=== PATIENT | female | born 1965 | race Two or more races ===

== ENCOUNTER → 2017-04-16 | Day surgery (SDC) | payer MEDICARE, OTHER ==
[~2017-04-16] MED LIST: ATROPINE SULFATE 1% OPHT SOLN 5 ML BTL ONE; CEPH500C3 PO; DEXAMETHASONE SOD PHOS 4 MG/ML VIAL ONE; DEXTROSE 50% IN WATER 50 ML SYRINGE ONE; EPINEPHrine HCL (1:1000) 1 MG/ML VIAL ONE; FLURBIPROFEN 0.03% OPHT SOLN 2.5 ML BTL ONE; GLUCTAB PO; HUMUINJ5 SC; HYALURONIDASE/LIDOCAINE/BUPIVACAINE 5 ML SYR ONE; LACTATED RINGER'S 1000 ML INJ 1,000 ML ONE; LISI-363 PO; LORTA5 PO; MIDAZOLAM HCL 2 MG/2 ML VIAL ONE; NEOMYCIN/POLYMYXIN/DEXAMETHASONE OPTH OINT 3.5 GM TUBE ONE; PHENYLEPHRINE HCL 2.5 % OPTH SOLN 15 ML BTL ONE; PROPOFOL 200 MG/20 ML AMP IV ONE; SILV400T TOP; SODIUM CHLORIDE 0.9% INJ 10 ML ONE; TETRACAINE 0.5% OPTH SOLN 15 ML BTL ONE; TRIAMCINOLONE ACETONIDE 40 MG/ML VIAL ONE; TROPICAMIDE 1% OPHT SOLN 15 ML BTL ONE; ceFAZolin INJ 1,000 MG VIAL ONE
--- NOTE | 2017-04-20 11:36 | MP ---
cc: ROMARIO ELAM MD DATE OF SURGERY 04/18/2017 DATE OF 1965 PREOPERATIVE DIAGNOSIS Proliferative diabetic retinopathy, tractional retinal detachment left eye. POSTOPERATIVE DIAGNOSIS Proliferative diabetic retinopathy, tractional retinal detachment left eye. OPERATION Pars plana vitrectomy with membrane pealing and endolaser left eye. ANESTHESIA MAC. SURGEON Romario Elam MD COMPLICATIONS None PROCEDURE After informed consent was obtained, the patient was given retrobulbar anesthesia. She was then brought to the operating room and prepared and draped in the usual sterile fashion. A wire lid speculum was placed in the patient's left eye. 23-gauge vitrectomy cannulas were then placed in the lower temporal, superotemporal and supranasal quadrants 3 mm posterior to the corneoscleral limbus. An infusion cannula was placed lower temporally. Core vitrectomy was then performed. There was already a posterior vitreous detachment. A vitrectomy was carried out as far as possible to the vitreous base taking care to remove vitreous from around the retinal break. A complete air-fluid exchange was then performed through a posterior retinotomy. The retina flattened nicely. Endolaser was used to treat the retinal breaks as well as the vitreous base for 360 degrees and the retinotomy. The air was then exchanged for a 16% C3F8. The three vitrectomy cannulas were then removed. Subconjunctival injections of dexamethasone and Ancef were placed. An Atropine drop, Maxitrol and a patch and shield were then applied. The patient tolerated the procedure well. There were no complications. She will position appropriately over the next week. She will follow up in two days in my [place] office. Romario Elam MD TAB/DJL /2:51 PM /11:21 AM
== END | disposition home or self-care (01) ==
LOC: ESDC 05:53
PROVIDERS: ATTEND Ophthalmology Retina Specialist
DX: E11.3532 Type 2 diabetes mellitus with proliferative diabetic retinopathy with traction retinal detachment not involving the macula, left eye (principal); Z79.4 Long term (current) use of insulin
CPT/HCPCS: 00145; 67108; 82948; J0171; J0690; J1100; J2250; J7120; J3301